=== PATIENT | male | born 1985 | race Caucasian/White ===

== ENCOUNTER 2016-08-23 10:11 | Emergency (ER) | payer MEDICARE, OTHER ==
[2016-08-23] MEDS ORDERED: ONDANSETRON 4 MG TAB.RAPDIS PO ONE (10:27)
--- NOTE | 2016-08-23 10:27 | ER Document Report ---
ED Medical Screen (RME) - General Stated Complaint: DIARRHEA Time seen by provider: 10:24 Mode of Arrival: Ambulatory Information source: Patient Notes: 31-year-old male presents to ED for diarrhea explosive with a bloated feeling with nausea no vomiting denies fever. With lower left abdominal pain. States he ate a lot of fried vegetables yesterday. I have greeted and performed a rapid initial assessment of this patient. A comprehensive ED assessment and evaluation of the patient, analysis of test results and completion of medical decision making process will be conducted by an additional ED providers. TRAVEL OUTSIDE OF THE [place] IN LAST 30 DAYS: No - Related Data Allergies/Adverse Reactions: No Known Allergies Allergy (Verified 10/05/15 10:33) Past Medical History - Past Medical History Cardiac Medical History: Reports: Hx Hypercholesterolemia GI Medical History: Reports: Hx Diverticulitis Psychiatric Medical History: Reports: Hx Depression Past Surgical History: Reports: Hx Orthopedic Surgery - left knee, right ankle
[2016-08-23 11:06] LABS: ABSOLUTE EOSINOPHILS # (AUTO) 0.1 10^3/uL (0.0-0.6); ABSOLUTE LYMPHOCYTES (AUTO) 0.7 10^3/uL (0.5-4.7); ABSOLUTE MONOCYTES (AUTO) 0.7 10^3/uL (0.1-1.4); ABSOLUTE NEUT (AUTO) 11.8 10^3/uL (1.7-8.2); BASOPHILS % (AUTO) 0.3 % (0-2); EOSINOPHILS % (AUTO) 0.8 % (0-6); HEMATOCRIT 53.9 % (37.9-51.0); HGB HCT DIFFERENCE 0.1; LYMPHOCYTES % (AUTO) 5.4 % (13-45); MEAN CORPUSCULAR HEMOGLOBIN 30.7 pg (27.0-33.4); MEAN CORPUSCULAR HGB CONC 33.4 g/dL (32.0-36.0); MEAN CORPUSCULAR VOLUME 92 fl (80-97); MONOCYTES % (AUTO) 5.2 % (3-13); RED BLOOD COUNT 5.85 10^6/uL (4.35-5.55); RED CELL DISTRIBUTION WIDTH 12.8 % (11.5-14.0); SEGMENTED NEUTROPHILS % (AUTO) 88.3 % (42-78); WHITE BLOOD COUNT 13.3 10^3/uL (4.0-10.5)
--- NOTE | 2016-08-23 11:08 | ER Document Report ---
ED GI/ - General Mode of Arrival: Ambulatory Information source: Patient TRAVEL OUTSIDE OF THE [place] IN LAST 30 DAYS: No - HPI Patient complains to provider of: Diarrhea Onset: This morning - 399 Timing/Duration: Sudden, Persistent Location: [facility] <ADI MEDINA - Last Filed: 08/23/16 11:29> <SAM HUTTON - Last Filed: 08/23/16 17:22> <FORTINO GAINES - Last Filed: 08/23/16 20:41> - General Chief Complaint: Nausea/Vomiting/Diarrhea Stated Complaint: DIARRHEA Notes: Patient is a 31-year-old male presenting to the emergency department chief complaint diarrhea onset 0 today. Patient states that he has been bloated and unable to drink many fluids. Patient also states he has left lower quadrant abdominal pain. Patient's kids were sick a couple weeks ago, but patient states they did not have any similar symptoms. Patient took Zofran and Lomotil at home that he had left over from a similar illness approximately one year ago. (ADI MEDINA) The patient reports his symptoms today are very similar to what he had when he was seen here in October 2015. At that time his stool was heme positive, there is no sign of bacterial infection, there were no WBCs in the stool, and he was treated symptomatically. Today, other than being hemoconcentrated compared to last year, his labs are appearing the same with heme positive stool again. I am waiting on the results of the Gram stain and C. difficile tests. (SAM HUTTON) - Related Data Allergies/Adverse Reactions: No Known Allergies Allergy (Verified 08/23/16 10:27) Past Medical History - General Information source: Patient - Social History Smoking Status: Current Every Day Smoker Chew tobacco use (# tins/day): No Frequency of alcohol use: None Drug Abuse: None Family History: Reviewed & Not Pertinent Patient has suicidal ideation: No Patient has homicidal ideation: No - Past Medical History Cardiac Medical History: Reports: Hx Hypercholesterolemia, Hx Hypertension GI Medical History: Reports: Hx Diverticulitis Psychiatric Medical History: Reports: Hx Depression Past Surgical History: Reports: Hx Orthopedic Surgery - left knee, right ankle <ADI MEDINA - Last Filed: 08/23/16 11:29> Review of Systems - Review of Systems Constitutional: No symptoms reported EENT: No symptoms reported Cardiovascular: No symptoms reported Respiratory: No symptoms reported Gastrointestinal: See HPI, Abdominal pain, Diarrhea, Poor fluid intake. denies : Vomiting Genitourinary: No symptoms reported Male Genitourinary: No symptoms reported Musculoskeletal: No symptoms reported Skin: No symptoms reported Hematologic/Lymphatic: No symptoms reported Neurological/Psychological: No symptoms reported -: Yes All other systems reviewed and negative <ADI MEDINA - Last Filed: 08/23/16 11:29> Physical Exam - General General appearance: Appears well, Alert - HEENT Head: Normocephalic, Atraumatic Eyes: Normal Pupils: PERRL Mucous membranes: Dry - Respiratory Respiratory status: No respiratory distress Chest status: Nontender Breath sounds: Normal - Cardiovascular Rhythm: Regular Heart sounds: Normal auscultation Murmur: No - Abdominal Inspection: Obese Distension: No distension Bowel sounds: Normal Tenderness: Tender - LLQ and RLQ tender to palpation - Back Back: Normal, Nontender - Extremities General upper extremity: Normal inspection General lower extremity: Normal inspection - Neurological Neuro grossly intact: Yes Cognition: Normal [place] Coma Scale Eye Opening: Spontaneous [place] Coma Scale Verbal: Oriented [place] Coma Scale Motor: Obeys Commands [place] Coma Scale Total: 15 Speech: Normal - Psychological Associated symptoms: Normal affect, Normal mood - Skin Skin Temperature: Warm Skin Moisture: Dry Skin Color: Normal <ADI MEDINA - Last Filed: 08/23/16 11:29> <SAM HUTTON - Last Filed: 08/23/16 17:22> <FORTINO GAINES - Last Filed: 08/23/16 20:41> - Vital signs Vitals: Temp Pulse Resp BP Pulse Ox 98.1 F 94 20 134/79 H 96 08/23/16 10:22 08/23/16 10:22 08/23/16 10:22 08/23/16 10:22 08/23/16 10:22 (ADI MEDINA) (SAM HUTTON) (FORTINO GAINES) Course - Laboratory Result Diagrams: 08/23/16 10:40 08/23/16 10:40 <ADI MEDINA - Last Filed: 08/23/16 11:29> - Laboratory Result Diagrams: 08/23/16 10:40 08/23/16 10:40 - Transfer of Care Care transferred to following provider: Dr. Gaines <SAM HUTTON - Last Filed: 08/23/16 17:22> - Laboratory Result Diagrams: 08/23/16 10:40 08/23/16 10:40 <FORTINO GAINES - Last Filed: 08/23/16 20:41> - Re-evaluation Re-evalutation: 08/23/16 14:30 Patient is currently sound asleep. He received 2 L of IV fluids, he has not had any diarrhea so far. 08/23/16 17:19 Labs were ordered on this patient from the intake area. I mistakenly assumed that the stool was ordered included the usual labs. I found out now that only Hemoccult was ordered, tests for C. difficile and WBCs was not ordered. They will be added at this time. (SAM HUTTON) 08/23/16 20:37 C. difficile and wbcs were negative patient will be discharged home (FORTINO GAINES) - Vital Signs Vital signs: Temp Pulse Resp BP Pulse Ox 98.1 F 94 20 134/79 H 96 08/23/16 10:22 08/23/16 10:22 08/23/16 10:22 08/23/16 10:22 08/23/16 10:22 (ADI MEDINA) (SAM HUTTON) (FORTINO GAINES) - Laboratory Laboratory results interpreted by me: 08/23/16 08/23/16 10:40 10:40 WBC 13.3 H RBC 5.85 H Hgb 18.0 H Hct 53.9 H Seg Neutrophils % 88.3 H Lymphocytes % 5.4 L Absolute Neutrophils 11.8 H Calcium 10.5 H Total Bilirubin 2.3 H Total Protein 8.5 H Albumin 5.5 H (SAM HUTTON) (FORTINO GAINES) - Transfer of Care Notes: 08/23/16 17:25 The patient is waiting on the C. diff, and stool for WBC's prior to discharge. The discharge instructions were written assuming the C. difficile and stool for WBCs are negative. If either turns out be positive, then the discharge instructions will be changed and appropriate antibiotics prescribed by Dr. Gaines. (SAM HUTTON) Discharge <ADI MEDINA - Last Filed: 08/23/16 11:29> <SAM HUTTON - Last Filed: 08/23/16 17:22> <BAMBIFORTINO - Last Filed: 08/23/16 20:41> - Discharge Clinical Impression: Diarrhea Qualifiers: Diarrhea type: unspecified type Qualified Code(s): R19.7 - Diarrhea, unspecified Condition: Stable Additional Instructions: Gastroenteritis: You most likely have gastroenteritis. This is an irritation of the stomach and intestinal tract. It's usually caused by a virus, but can also be caused by bacteria, toxins that cause food poisoning, or excessive alcohol intake. Symptoms may include fever, painful abdominal cramps, nausea, vomiting , and diarrhea. Start with small amounts (two to six ounces) of clear liquids (soft drinks , herb teas, broth, etc). Try to take fluids frequently even if you are vomiting, to prevent dehydration. When liquids are being consumed successfully , advance to small amounts of bland food (mashed potato, toast) for 6 - 12 hours. Gastroenteritis rarely requires medication. It goes away by itself. Use good handwashing so you don't spread germs. Wash underwear in very hot water. If symptoms are severe, talk to the doctor. Call your physician if blood appears in your vomitus or stool, if vomiting lasts longer than 24 hours, if the abdominal pain worsens or becomes localized to one area, or if you develop high fever. Prescriptions: Ondansetron [Zofran Odt 4 mg Tablet] 1 - 2 tab PO Q4H PRN #30 tab.rapdis PRN Reason: For Nausea/Vomiting Referrals: KENNY AQUINO PA-C [Primary Care Provider] - Follow up as needed Scribe Attestation: 08/23/16 17:24 I personally performed the services described in the documentation, reviewed and edited the documentation which was dictated to the scribe in my presence, and it accurately records my words and actions. (SAM HUTTON) Scribe Documentation - Scribe Written by Scribe:: Adi Medina 08/23/2016 1108 acting as scribe for :: Marian <ADI MEDINA - Last Filed: 08/23/16 11:29>
[2016-08-23 11:32] LABS: ALANINE AMINOTRANSFERASE 48 U/L (21-72); ALBUMIN 5.5 g/dL (3.5-5.0); ALKALINE PHOSPHATASE 82 U/L (38-126); ANION GAP 17 (5-19); ASPARTATE AMINO TRANSFERASE 36 U/L (17-59); BILIRUBIN,TOTAL 2.3 mg/dL (0.2-1.3); BLOOD UREA NITROGEN 17 mg/dL (7-20); CALCIUM 10.5 mg/dL (8.4-10.2); CARBON DIOXIDE 25 mmol/L (22-30); CHLORIDE 102 mmol/L (98-107); CREATININE RESULT 1.16 mg/dL (0.52-1.25); GLUCOSE 103 mg/dL (75-110); LIPASE 81.1 U/L (23-300); POTASSIUM 4.7 mmol/L (3.6-5.0); SODIUM 143.6 mmol/L (137-145); TOTAL PROTEIN 8.5 g/dL (6.3-8.2)
[2016-08-23] MEDS ORDERED: NORMAL SALINE 1000 ML 1,000 ML IV PRN (11:33)
[2016-08-23 14:04] LABS: APPEARANCE,URINE CLEAR; BILIRUBIN,URINE NEGATIVE (NEGATIVE); GLUCOSE, URINE NEGATIVE (NEGATIVE); KETONES,URINE NEGATIVE (NEGATIVE); LEUKOCYTE ESTERASE,URINE NEGATIVE (NEGATIVE); NITRITE,URINE NEGATIVE (NEGATIVE); PROTEIN,URINE NEGATIVE (NEGATIVE); URINE SPECIFIC GRAVITY 1.024; UROBILINOGEN,URINE NEGATIVE mg/dL (<2.0)
[2016-08-23] MEDS ORDERED: DEXTROSE 5%-NORMAL SALINE 1,000 ML IV ONE (14:30)
[2016-08-23] MEDS ORDERED: ONDANSETRON ODT 4 MG TAB (6 TAB/DSPK) PO PRN (20:23)
[2016-08-23 21:07] VITALS: BP 126/77
== END 2016-08-23 20:46 | disposition home or self-care (01) ==
LOC: ER 10:11
DX: R19.7 Diarrhea, unspecified (principal); R10.32 Left lower quadrant pain; R10.814 Left lower quadrant abdominal tenderness; R10.813 Right lower quadrant abdominal tenderness; R19.5 Other fecal abnormalities; I10 Essential (primary) hypertension; F17.200 Nicotine dependence, unspecified, uncomplicated; Z87.19 Personal history of other diseases of the digestive system
CPT/HCPCS: 99283; 96360; 96361; 36415; 89055; 83690; 85025; 82272; 80053; 81001; 87493 ×2; A9270 ×2; J7030; S0119

== ENCOUNTER 2017-09-07 02:37 | Emergency (ER) | payer MEDICARE, OTHER ==
[2017-09-07] MEDS ORDERED: LORAZEPAM 1 MG TABLET PO ONE (03:39)
[2017-09-07] MEDS ORDERED: NORMAL SALINE 1000 ML 1,000 ML IV ONE (03:39)
--- NOTE | 2017-09-07 03:41 | ER Document Report ---
ED General - General Chief Complaint: Nausea Stated Complaint: DIARRHEA Time Seen by Provider: 09/07/17 03:32 Notes: Patient is a pleasant 32-year-old male who presents with complaint of feeling weak and achy having diarrhea. He says that he ran out of his lorazepam 2 days ago. Then he started having the diarrhea has continued. He is due for an appointment tomorrow with his doctor for a refill. Denies any fevers. Some nausea but no vomiting. No blood in his stool. He does have history of diverticulitis several years ago. He says this feels different than his diverticulitis and that he has no associated abdominal pain. He says he has had similar symptoms when he is ran out of his lorazepam in the past. No other complaints at this time. TRAVEL OUTSIDE OF THE [place] IN LAST 30 DAYS: No - Related Data Allergies/Adverse Reactions: No Known Allergies Allergy (Verified 08/23/16 10:27) Past Medical History - Social History Smoking Status: Current Every Day Smoker Frequency of alcohol use: None Drug Abuse: None Family History: Reviewed & Not Pertinent Patient has suicidal ideation: No Patient has homicidal ideation: No - Past Medical History Cardiac Medical History: Reports: Hx Hypercholesterolemia, Hx Hypertension Renal/ Medical History: Denies: Hx Peritoneal Dialysis GI Medical History: Reports: Hx Diverticulitis Psychiatric Medical History: Reports: Hx Depression Past Surgical History: Reports: Hx Orthopedic Surgery - left knee, right ankle - Immunizations Hx Diphtheria, Pertussis, Tetanus Vaccination: No Review of Systems - Review of Systems Notes: My Normal Review Basic REVIEW OF SYSTEMS: CONSTITUTIONAL : Denies fever, chills, or sweats. Denies recent illness. EENT: Denies eye, ear, throat, or mouth pain or symptoms. Denies nasal or sinus congestion. CARDIOVASCULAR: Denies chest pain. RESPIRATORY: Denies cough, cold, or chest congestion. Denies shortness of breath, difficulty breathing, or wheezing. GASTROINTESTINAL: Denies abdominal pain. Nausea and diarrhea. No blood in stool. GENITOURINARY: Denies difficulty urinating, painful urination, burning, frequency, or blood in urine. MUSCULOSKELETAL: Denies neck or back pain or joint pain or swelling. SKIN: Denies rash or skin lesions. NEUROLOGICAL: Denies altered mental status or loss of consciousness. Denies headache. Denies weakness or paralysis or loss of use of either side. Denies problems with gait or speech. Denies sensory or motor loss. ALL OTHER SYSTEMS REVIEWED AND NEGATIVE. Physical Exam - Vital signs Vitals: Temp Pulse Resp BP Pulse Ox 98.1 F 71 20 132/92 H 96 09/07/17 03:18 09/07/17 03:18 09/07/17 03:18 09/07/17 03:18 09/07/17 03:18 - Notes Notes: General Appearance: Well nourished, alert, cooperative, no acute distress, no obvious discomfort. Well-appearing. Vitals: reviewed, See vital signs table. Head: no swelling or tenderness to the head Eyes: PERRL, EOMI, Conjuctiva clear Mouth: No decreasd moisture Lungs: No wheezing, No rales, No rhonci, No accessory muscle use, good air exchange bilaterally. Heart: Normal rate, Regular rythm, No murmur Abdomen: Normal BS, soft, No rigidity, No abdominal tenderness, No guarding, no rebound Extremities: strength 5/5 in all extremities, good pulses in all extremities, no swelling or tenderness in the extremities, no edema. Skin: warm, dry, appropriate color, no rash Neuro: speech clear, oriented x 3, normal affect, responds appropriately to questions. Course - Re-evaluation Re-evalutation: 09/07/17 04:57 Patient continues to look well and feels improved. His laboratory evaluation is unremarkable. I do not suspect diverticulitis and that he is [place] no pain in his abdomen and no pain to palpation. Suspect his symptoms could be dilated to benzodiazepine withdrawal being that this started oxygen 24 hours after his last dose of Ativan. I will write a prescription for a few pills of Ativan. He has appointment with his doctor tomorrow for follow-up and reevaluation for further prescribing of his medication. Patient encouraged to return to ER immediately if he has abdominal pain, fevers, blood in stool, or feels unwell. Patient agrees with plan will be discharged home. Dictation of this chart was performed using voice recognition software; therefore, there may be some unintended grammatical errors. - Vital Signs Vital signs: Temp Pulse Resp BP Pulse Ox 98.1 F 71 20 132/92 H 96 09/07/17 03:18 09/07/17 03:18 09/07/17 03:18 09/07/17 03:18 09/07/17 03:18 - Laboratory Result Diagrams: 09/07/17 03:29 09/07/17 03:29 Laboratory results interpreted by me: 09/07/17 03:29 Chloride 108 H Calcium 10.5 H ALT 76 H Discharge - Discharge Clinical Impression: Benzodiazepine dependence Diarrhea Qualifiers: Diarrhea type: unspecified type Qualified Code(s): R19.7 - Diarrhea, unspecified Condition: Good Disposition: HOME, SELF-CARE Additional Instructions: You blood work today did not show any concerning abnormalities. i suspect your diarrhea could be related to withdrawl from not having your Ativan. I have written a short prescription for your Ativan to get you thru until you see your doctor tomorrow. Please return ot the ER if oyu have abdominal pain,fevers, vomiting, bloody stools, or feel unwell. Prescriptions: Lorazepam [Ativan 1 mg Tablet] 1 mg PO BID #6 tab
[2017-09-07 03:43] LABS: ABSOLUTE BASOPHILS # (AUTO) 0.1 10^3/uL (0.0-0.2); ABSOLUTE EOSINOPHILS # (AUTO) 0.4 10^3/uL (0.0-0.6); ABSOLUTE LYMPHOCYTES (AUTO) 1.9 10^3/uL (0.5-4.7); ABSOLUTE MONOCYTES (AUTO) 0.4 10^3/uL (0.1-1.4); ABSOLUTE NEUT (AUTO) 6.3 10^3/uL (1.7-8.2); EOSINOPHILS % (AUTO) 3.9 % (0-6); HEMATOCRIT 48.2 % (37.9-51.0); HEMOGLOBIN 16.8 g/dL (13.5-17.0); LYMPHOCYTES % (AUTO) 20.7 % (13-45); MEAN CORPUSCULAR HEMOGLOBIN 31.1 pg (27.0-33.4); MEAN CORPUSCULAR HGB CONC 34.8 g/dL (32.0-36.0); MEAN CORPUSCULAR VOLUME 89 fl (80-97); PLATELET COUNT 287 10^3/uL (150-450); RED CELL DISTRIBUTION WIDTH 12.8 % (11.5-14.0); SEGMENTED NEUTROPHILS % (AUTO) 69.4 % (42-78); TOTAL CELLS COUNTED % (AUTO) 100 %
[2017-09-07 03:58] LABS: ALANINE AMINOTRANSFERASE 76 U/L (21-72); ALBUMIN 4.7 g/dL (3.5-5.0); ALKALINE PHOSPHATASE 72 U/L (38-126); ANION GAP 10 (5-19); ASPARTATE AMINO TRANSFERASE 38 U/L (17-59); BILIRUBIN,DIRECT 0.4 mg/dL (0.0-0.4); BILIRUBIN,TOTAL 0.9 mg/dL (0.2-1.3); BLOOD UREA NITROGEN 9 mg/dL (7-20); CALCIUM 10.5 mg/dL (8.4-10.2); CARBON DIOXIDE 23 mmol/L (22-30); CHLORIDE 108 mmol/L (98-107); GLUCOSE 107 mg/dL (75-110); LIPASE 101.7 U/L (23-300); POTASSIUM 4.2 mmol/L (3.6-5.0); SODIUM 140.6 mmol/L (137-145); TOTAL PROTEIN 7.6 g/dL (6.3-8.2)
[2017-09-07 05:22] VITALS: BP 108/63
== END 2017-09-07 05:33 | disposition home or self-care (01) ==
LOC: ER 02:37
DX: F13.20 Sedative, hypnotic or anxiolytic dependence, uncomplicated (principal); R19.7 Diarrhea, unspecified; R11.0 Nausea; F17.200 Nicotine dependence, unspecified, uncomplicated; E78.00 Pure hypercholesterolemia, unspecified; I10 Essential (primary) hypertension
CPT/HCPCS: 99284; 96360; 36415; 83690; 85025; 80053; A9270; J7030

== ENCOUNTER 2017-09-26 07:30 | Emergency (ER) | payer MEDICARE, OTHER ==
--- NOTE | 2017-09-26 08:34 | ER Document Report ---
ED General - General Chief Complaint: Nausea/Vomiting/Diarrhea Stated Complaint: LEFT FLANK PAIN Time Seen by Provider: 09/26/17 08:01 Notes: 32-year-old male to the emergency department chief complaint of left upper quadrant abdominal pain and left-sided chest and flank pain. States that he was scheduled for colonoscopy today. Was feeling so bad he could not even make it out of bed. Had a call an ambulance. States that he has been worked up by a doctor as an outpatient. Had some constipation which he described as a "obstruction". After getting cleaned out then he has diarrhea now. Reports that he had mono in the last couple of years and that thinks maybe it is mono again. Intermittent fevers, intermittent chills and sweats. Has any blood in the urine. Denies any testicular pain. Nothing seems to make it better. Movement and coughing seems to make it worse. Pain seems to radiate up into the left chest. Feels wiped out. he currently on disability for severe PTSD from his time in the [employer] TRAVEL OUTSIDE OF THE [place] IN LAST 30 DAYS: No - HPI Onset: Last week Onset/Duration: Gradual, Worse Quality of pain: Achy, Cramping Severity: Moderate Pain Level: 3 Associated symptoms: Chills, Diarrhea, Fever, Nausea Relieved by: Denies - Related Data Allergies/Adverse Reactions: milk Allergy (Unknown, Verified 09/26/17 07:33) shrimp Allergy (Unknown, Verified 09/26/17 07:33) wheat Allergy (Unknown, Verified 09/26/17 07:33) Past Medical History - General Information source: Patient - Social History Smoking Status: Current Every Day Smoker Cigarette use (# per day): Yes Smoking Education Provided: Yes Frequency of alcohol use: None Drug Abuse: None Lives with: Spouse/Significant other Family History: Reviewed & Not Pertinent - Past Medical History Cardiac Medical History: Reports: Hx Hypercholesterolemia, Hx Hypertension Renal/ Medical History: Denies: Hx Peritoneal Dialysis GI Medical History: Reports: Hx Diverticulitis Psychiatric Medical History: Reports: Hx Depression Past Surgical History: Reports: Hx Orthopedic Surgery - left knee, right ankle - Immunizations Hx Diphtheria, Pertussis, Tetanus Vaccination: No Review of Systems - Review of Systems Constitutional: Fever, Malaise, Weakness EENT: denies: Blurred vision, Tearing, Double vision, Ear pain, Nose congestion , Nose discharge, Throat swelling, Mouth pain Cardiovascular: Chest pain. denies: Palpitations, Heart racing, Orthopnea, Dyspnea, Lightheaded, Edema, Paroxysmal Nocturnal Dysp Respiratory: Hurts to breathe. denies: Cough, Short of breath, Wheezing Gastrointestinal: Abdominal pain, Diarrhea, Nausea Genitourinary: Flank pain. denies: Burning, Dysuria, Discharge, Pain Musculoskeletal: Back pain. denies: Gout, Joint pain, Joint swelling, Muscle pain Skin: denies: Dryness, Lesions, Lumps, Rash Hematologic/Lymphatic: denies: Anemia, Blood clots, Easy bleeding, Easy bruising Neurological/Psychological: Depression. denies: Dementia, Lost consciousness, Headaches Physical Exam - Vital signs Vitals: Temp Pulse Resp BP Pulse Ox 97.9 F 64 19 143/94 H 99 09/26/17 07:49 09/26/17 07:49 09/26/17 07:49 09/26/17 07:49 09/26/17 07:49 Interpretation: Normal - General General appearance: Appears well, Alert - HEENT Head: Normocephalic, Atraumatic Eyes: Normal Pupils: PERRL Neck: Normal. No: Anterior cervical chain, Posterior cervical chain, Brudzinski - Respiratory Respiratory status: No respiratory distress Chest status: Nontender Breath sounds: Normal Chest palpation: Normal - Cardiovascular Rhythm: Regular Heart sounds: Normal auscultation Murmur: No - Abdominal Inspection: Normal Distension: No distension Bowel sounds: Normal Tenderness: Tender, Other - Left upper quadrant and left flank tenderness Organomegaly: No organomegaly - Back Back: Normal, Tender, Other - Flank on the left tender to percussion - Extremities General upper extremity: Normal inspection, Nontender, Normal color, Normal ROM , Normal temperature General lower extremity: Normal inspection, Nontender, Normal color, Normal ROM , Normal temperature, Normal weight bearing. No: Jared's sign - Neurological Neuro grossly intact: Yes Cognition: Normal Orientation: AAOx4 [place] Coma Scale Eye Opening: Spontaneous [place] Coma Scale Verbal: Oriented [place] Coma Scale Motor: Obeys Commands [place] Coma Scale Total: 15 Speech: Normal Motor strength normal: LUE, RUE, LLE, RLE Sensory: Normal - Psychological Associated symptoms: Normal affect, Normal mood - Skin Skin Temperature: Warm Skin Moisture: Dry Skin Color: Normal Course - Re-evaluation Re-evalutation: 09/26/17 12:54 Patient feeling a little better. Uncertain etiology of patient's symptoms. CT scan unremarkable. Slightly elevated WBC count. Had a very long discussion with regards to leaky gut and repairing of GI dysfunction. Gave recommendations with regards to food sensitivities and an elimination diet with inclusion of probiotics. Did recommend VS L #3. I have also recommended that he follow-up with GI. Of note, patient has a colonoscopy scheduled for Friday. Will recommend as well that he gets an upper endoscopy as his pain in the left upper quadrant could actually be gastric in relation 09/26/17 12:56 Laboratory 09/26/17 09/26/17 09/26/17 08:33 08:33 08:33 WBC 11.5 H RBC 5.65 H Hgb 17.6 H Hct 50.0 MCV 88 MCH 31.2 MCHC 35.3 RDW 12.7 Plt Count 295 Seg Neutrophils % 73.3 Lymphocytes % 17.9 Monocytes % 5.6 Eosinophils % 2.7 Basophils % 0.5 Absolute Neutrophils 8.4 H Absolute Lymphocytes 2.1 Absolute Monocytes 0.6 Absolute Eosinophils 0.3 Absolute Basophils 0.1 Sodium 140.5 Potassium 4.1 Chloride 107 Carbon Dioxide 22 Anion Gap 12 BUN 9 Creatinine 0.96 Est GFR ( Amer) > 60 Est GFR (Non-Af Amer) > 60 Glucose 91 Calcium 9.6 Total Bilirubin 1.5 H Direct Bilirubin 0.4 Neonat Total Bilirubin Not Reportable Neonat Direct Bilirubin Not Reportable Neonat Indirect Bili Not Reportable AST 52 ALT 49 Alkaline Phosphatase 68 Total Protein 8.0 Albumin 4.7 Lipase 92.9 Urine Color Urine Appearance Urine pH Ur Specific [place] Urine Protein Urine Glucose (UA) Urine Ketones Urine Blood Urine Nitrite Urine Bilirubin Urine Urobilinogen Ur Leukocyte Esterase Urine WBC (Auto) Urine Ascorbic Acid Monotest NEGATIVE 09/26/17 11:23 WBC RBC Hgb Hct MCV MCH MCHC RDW Plt Count Seg Neutrophils % Lymphocytes % Monocytes % Eosinophils % Basophils % Absolute Neutrophils Absolute Lymphocytes Absolute Monocytes Absolute Eosinophils Absolute Basophils Sodium Potassium Chloride Carbon Dioxide Anion Gap BUN Creatinine Est GFR ( Amer) Est GFR (Non-Af Amer) Glucose Calcium Total Bilirubin Direct Bilirubin Neonat Total Bilirubin Neonat Direct Bilirubin Neonat Indirect Bili AST ALT Alkaline Phosphatase Total Protein Albumin Lipase Urine Color STRAW Urine Appearance CLEAR Urine pH 8.0 Ur Specific [place] 1.004 Urine Protein NEGATIVE Urine Glucose (UA) NEGATIVE Urine Ketones NEGATIVE Urine Blood NEGATIVE Urine Nitrite NEGATIVE Urine Bilirubin NEGATIVE Urine Urobilinogen NEGATIVE Ur Leukocyte Esterase NEGATIVE Urine WBC (Auto) 0 Urine Ascorbic Acid NEGATIVE Monotest Abdomen/Pelvis CT 09/26/17 00:00 IMPRESSION: NO SIGNIFICANT OR ACUTE FINDING IN THE ABDOMEN OR PELVIS ON CT SCAN WITH IV CONTRAST. Chest X-Ray 09/26/17 08:34 IMPRESSION: NO SIGNIFICANT RADIOGRAPHIC FINDING IN THE CHEST. - Vital Signs Vital signs: Temp Pulse Resp BP Pulse Ox 97.9 F 64 19 143/94 H 99 09/26/17 07:49 09/26/17 07:49 09/26/17 07:49 09/26/17 07:49 09/26/17 07:49 - Laboratory Result Diagrams: 09/26/17 08:33 09/26/17 08:33 Laboratory results interpreted by me: 09/26/17 09/26/17 08:33 08:33 WBC 11.5 H RBC 5.65 H Hgb 17.6 H Absolute Neutrophils 8.4 H Total Bilirubin 1.5 H Discharge - Discharge Clinical Impression: Left upper quadrant abdominal pain of unknown etiology Condition: Good Disposition: HOME, SELF-CARE Instructions: Abdominal Pain ([facility]), Prescribed Antidiarrhea Medications ([facility]), Antispasmodics ([facility]), Diarrhea, Nonspecific ([facility]) Additional Instructions: It would be very important that you follow-up with your regular doctor within the next 24 hours if symptoms get worse or not improving. You have a colonoscopy scheduled for Friday. I have admitted advising if possible to have upper endoscopy performed as well. Please call your reducing salon attendant today to see if that would be possible. It may require repeat visit. Please follow the elimination diet which I spoke with you about. Avoid wheat, dairy, soy products, eggs as well as peanuts. Please try the probiotics as recommended. You may try the prescription medications as given. Prescriptions: Dicyclomine HCl [Bentyl 10 mg Capsule] 1 cap PO TID PRN #30 cap PRN Reason: Diarrhea Hydrocodone/Acetaminophen [Dale 5-325 mg Tablet] 1 tab PO TID PRN 3 Days #9 tablet PRN Reason: Pain Scale Of 3 Ondansetron [Zofran Odt 4 mg Tablet] 1 - 2 tab PO Q4H PRN #15 tab.rapdis PRN Reason: For Nausea/Vomiting Forms: Follow-Up Outpatient Testing Referrals: KENNY AQUINO PA-C [Primary Care Provider] - Follow up as needed DOMENICA LINO MD [ACTIVE STAFF] - Follow up in 3-5 days
[2017-09-26] MEDS ORDERED: FENTANYL CITRATE INJ/PF 100 MCG/2 ML AMPUL IV ONE (08:35)
[2017-09-26 08:51] LABS: ABSOLUTE BASOPHILS # (AUTO) 0.1 10^3/uL (0.0-0.2); ABSOLUTE EOSINOPHILS # (AUTO) 0.3 10^3/uL (0.0-0.6); ABSOLUTE LYMPHOCYTES (AUTO) 2.1 10^3/uL (0.5-4.7); ABSOLUTE MONOCYTES (AUTO) 0.6 10^3/uL (0.1-1.4); ABSOLUTE NEUT (AUTO) 8.4 10^3/uL (1.7-8.2); BASOPHILS % (AUTO) 0.5 % (0-2); EOSINOPHILS % (AUTO) 2.7 % (0-6); HEMOGLOBIN 17.6 g/dL (13.5-17.0); LYMPHOCYTES % (AUTO) 17.9 % (13-45); MEAN CORPUSCULAR HEMOGLOBIN 31.2 pg (27.0-33.4); MEAN CORPUSCULAR HGB CONC 35.3 g/dL (32.0-36.0); MEAN CORPUSCULAR VOLUME 88 fl (80-97); MONOCYTES % (AUTO) 5.6 % (3-13); PLATELET COUNT 295 10^3/uL (150-450); RED BLOOD COUNT 5.65 10^6/uL (4.35-5.55); RED CELL DISTRIBUTION WIDTH 12.7 % (11.5-14.0); SEGMENTED NEUTROPHILS % (AUTO) 73.3 % (42-78); TOTAL CELLS COUNTED % (AUTO) 100 %; WHITE BLOOD COUNT 11.5 10^3/uL (4.0-10.5)
[2017-09-26] MEDS ORDERED: ONDANSETRON HCL INJ/PF 4 MG/2 ML SDV IV ONE (09:03)
[2017-09-26 09:11] LABS: ALANINE AMINOTRANSFERASE 49 U/L (21-72); ALBUMIN 4.7 g/dL (3.5-5.0); ALKALINE PHOSPHATASE 68 U/L (38-126); ANION GAP 12 (5-19); ASPARTATE AMINO TRANSFERASE 52 U/L (17-59); BILIRUBIN,DIRECT 0.4 mg/dL (0.0-0.4); BILIRUBIN,TOTAL 1.5 mg/dL (0.2-1.3); BLOOD UREA NITROGEN 9 mg/dL (7-20); CALCIUM 9.6 mg/dL (8.4-10.2); CARBON DIOXIDE 22 mmol/L (22-30); CHLORIDE 107 mmol/L (98-107); GLUCOSE 91 mg/dL (75-110); LIPASE 92.9 U/L (23-300); POTASSIUM 4.1 mmol/L (3.6-5.0); SODIUM 140.5 mmol/L (137-145)
[2017-09-26] MEDS ORDERED: KETOROLAC TROMETHAMINE INJ/PF 30 MG/1 ML SDV IV ONE (10:18)
[2017-09-26] MEDS ORDERED: DIPHENHYDRAMINE HCL 50 MG/ML VIAL IV ONE (11:01)
[2017-09-26 11:49] LABS: APPEARANCE,URINE CLEAR; BILIRUBIN,URINE NEGATIVE (NEGATIVE); COLOR,URINE STRAW; GLUCOSE, URINE NEGATIVE (NEGATIVE); KETONES,URINE NEGATIVE (NEGATIVE); LEUKOCYTE ESTERASE,URINE NEGATIVE (NEGATIVE); NITRITE,URINE NEGATIVE (NEGATIVE); PROTEIN,URINE NEGATIVE (NEGATIVE); URINE SPECIFIC GRAVITY 1.004; UROBILINOGEN,URINE NEGATIVE mg/dL (<2.0)
--- NOTE | 2017-09-26 11:49 | RADIOLOGY REPORT (SQ) ---
EXAM DESCRIPTION: CHEST PA/LAT COMPLETED DATE/TIME: 09/26/2017 11:42 am REASON FOR STUDY: abd pain, left chest pain COMPARISON: None. EXAM PARAMETERS: NUMBER OF VIEWS: two views TECHNIQUE: Digital Frontal and Lateral radiographic views of the chest acquired. RADIATION DOSE: NA LIMITATIONS: none FINDINGS: LUNGS AND PLEURA: No opacities, masses or pneumothorax. No pleural effusion. MEDIASTINUM AND HILAR STRUCTURES: No masses or contour abnormalities. HEART AND VASCULAR STRUCTURES: Heart normal size. No evidence for failure. BONES: No acute findings. HARDWARE: None in the chest. OTHER: No other significant finding. IMPRESSION: NO SIGNIFICANT RADIOGRAPHIC FINDING IN THE CHEST. TECHNICAL DOCUMENTATION: JOB ID: [id number] 1908 [employer]- All Rights Reserved
--- NOTE | 2017-09-26 12:08 | RADIOLOGY REPORT (SQ) ---
EXAM DESCRIPTION: CT ABD/PELVIS WITH IV ORAL COMPLETED DATE/TIME: 09/26/2017 11:56 am REASON FOR STUDY: abd pain COMPARISON: CT abdomen pelvis 10/05/2015 TECHNIQUE: CT scan of the abdomen and pelvis performed using helical scanning technique with dynamic intravenous contrast injection. Patient drank oral contrast. Images reviewed with lung, soft tissue , and bone windows. Reconstructed coronal and sagittal MPR images reviewed. Delayed images for evalua tion of the urinary system also acquired. All images stored on PACS. All CT scanners at this facility use dose modulation, iterative reconstruction, and/or weight based d osing when appropriate to reduce radiation dose to as low as reasonably achievable (ALARA). [facility]: Dose Right [facility]: CareDose [facility]: Dose Right [facility]: Teradose 4D [facility]: [employer] CONTRAST TYPE AND DOSE: contrast/concentration: Isovue 370.00 mg/ml; Total Contrast Delivered: 100.0 ml; Total Saline Delivered: 59.4 ml RENAL FUNCTION: Creatinine 0.96 RADIATION DOSE: CT Rad equipment meets quality standard of care and radiation dose reduction techniq ues were employed. CTDIvol: 17.3 - 20.3 mGy. DLP: 2219 mGy-cm.. LIMITATIONS: None. FINDINGS: LOWER CHEST: No significant findings. No nodules or infiltrates. LIVER: Normal size. No masses. No dilated ducts. SPLEEN: Normal size. No focal lesions. PANCREAS: No masses. No significant calcifications. No adjacent inflammation or peripancreatic fluid collections. Pancreatic duct not dilated. GALLBLADDER: No identified stones by CT criteria. No inflammatory changes to suggest cholecystitis. ADRENAL GLANDS: No significant masses or asymmetry. RIGHT KIDNEY AND URETER: No solid masses. No significant calcifications. No hydronephrosis or hyd roureter. LEFT KIDNEY AND URETER: No solid masses. No significant calcifications. No hydronephrosis or hydr oureter. AORTA AND VESSELS: No aneurysm. No dissection. Renal arteries, SMA, celiac without stenosis. RETROPERITONEUM: No retroperitoneal adenopathy, hemorrhage or masses. BOWEL AND PERITONEAL CAVITY: No masses or inflammatory changes. No free fluid or peritoneal masses. APPENDIX: Normal. PELVIS: No mass. No free fluid. Normal bladder. ABDOMINAL WALL: No masses. No hernias. BONES: No significant or acute findings. OTHER: No other significant finding. IMPRESSION: NO SIGNIFICANT OR ACUTE FINDING IN THE ABDOMEN OR PELVIS ON CT SCAN WITH IV CONTRAST. TECHNICAL DOCUMENTATION: JOB ID: [id number] Quality ID # [id number]: Final reports with documentation of one or more dose reduction techniques (e.g., Au tomated exposure control, adjustment of the mA and/or kV according to patient size, use of iterative reconstruction technique) 2010 [employer]- All Rights Reserved Reading location - IP/workstation name: [email or web address] [id number]
[2017-09-26] MEDS ORDERED: ALBUTEROL SULFATE 0.083% NEB 2.5 MG/3 ML AMPUL NEB ONE (12:12)
[2017-09-26 13:21] VITALS: BP 144/95
== END 2017-09-26 13:21 | disposition home or self-care (01) ==
LOC: ER 07:30
DX: R10.12 Left upper quadrant pain (principal); R11.2 Nausea with vomiting, unspecified; R19.7 Diarrhea, unspecified; R07.9 Chest pain, unspecified; K59.00 Constipation, unspecified; R50.9 Fever, unspecified; F17.210 Nicotine dependence, cigarettes, uncomplicated
CPT/HCPCS: 99284; 96374; 96375; 86677 ×3; 36415; 83690; 85025; 86308; 80053; 81001; 71046; 74177; J1200; J3010; J1885; J2405

== ENCOUNTER 2017-09-29 10:10 | Day surgery (SDC) | payer MEDICARE, OTHER ==
[~2017-09-29 10:10] MED LIST: PROPOFOL INJ 200 MG/20 ML VIAL IV ONE
[2017-09-29] MEDS ORDERED: LIDOCAINE 1% INJ-PF (10 MG/ML) 30 ML SDV ONE (12:16)
[2017-09-29] MEDS ORDERED: PROPOFOL INJ 200 MG/20 ML VIAL IV ONE (12:42)
[2017-09-29] MEDS ORDERED: ONDANSETRON HCL INJ/PF 4 MG/2 ML SDV IV ONE (12:48)
[2017-09-29] MEDS ORDERED: ONDANSETRON HCL INJ/PF 4 MG/2 ML SDV ONE (13:01)
[2017-09-29 13:22] VITALS: BP 120/76
--- NOTE | 2017-09-29 14:23 | Operative Report ---
Operative Report DATE OF SURGERY: 09/29/17 Operative Report: The risks, benefits and alternatives of the procedure including risks of bleeding, perforation requiring surgery are explained to the patient in detail and informed consent was obtained. Patient was taken back to the endoscopy suite and placed in the left, lateral decubital position. Timeout was called. Propofol medications administered. A rectal examination is done which did not reveal any masses, tears or fissures. An Olympus videoscope was inserted into the patient's rectum. The scope was then carefully advanced all the way to the cecum. The cecum was identified by the usual anatomical landmarks including the ileocecal valve as well as the appendiceal office. Photodocumentation was obtained. The scope was then sequentially pulled back via the various segments of the colon including the ascending colon, hepatic flexure, transverse colon, splenic flexure, descending colon finding to the rectosigmoid portions of the colon. Retroflexion maneuvers performed. The risks benefits and alternatives of the procedure explained to the patient in detail and informed consent is obtained.A GIF Olympus video scope was inserted into the patient's mouth and hypopharynx ,the esophagus is identified intubated and insufflated, the scope was then advanced through the esophagus stomach and duodenum, retroflexion maneuver is done, the esophagus stomach and first and second portions of the duodenum examined PREOPERATIVE DIAGNOSIS: Dyspepsia, weight loss. Abdominal pain POSTOPERATIVE DIAGNOSIS: Colon polyp was removed via snare polypectomy. Terminal ileum biopsies, random status post biopsy to rule out for Crohn's disease. Internal hemorrhoids. Gastritis status post biopsy rule out Helicobacter pylori. Random biopsies taken in the duodenum to rule out celiac disease OPERATION: Colonoscopy with snare polypectomy. Colonoscopy with biopsy. EGD with biopsy SURGEON: DOMENICA LINO ANESTHESIA: LMAC TISSUE REMOVED OR ALTERED: As noted above. COMPLICATIONS: None. ESTIMATED BLOOD LOSS: None. INTRAOPERATIVE FINDINGS: As noted above. PROCEDURE: Patient tolerated procedure well. No immediate postprocedure complications are noted. Patient discharged in good condition. Discharge date 09/29/2017. Discharge diet: Regular. Discharge activity: Regular. 2-3 week follow-up to discuss findings. We will wait on pathology. Patient is instructed call the office or proceed to the emergency room should there be any further problems or questions. 3-5 year surveillance colonoscopy depending on the pathology of the polyp.
== END 2017-09-29 13:30 | disposition home or self-care (01) ==
LOC: END 10:10
PROVIDERS: ATTEND Internal Medicine Gastroenterology
PROC: 0DB98ZX Excision of Duodenum, Via Natural or Artificial Opening Endoscopic, Diagnostic (ICD-10-PCS; 2017-09-29)
PROC: 0DB68ZX Excision of Stomach, Via Natural or Artificial Opening Endoscopic, Diagnostic (ICD-10-PCS; 2017-09-29)
PROC: 0DBB8ZX Excision of Ileum, Via Natural or Artificial Opening Endoscopic, Diagnostic (ICD-10-PCS; principal; 2017-09-29 13:30)
PROC: 0DBN8ZX Excision of Sigmoid Colon, Via Natural or Artificial Opening Endoscopic, Diagnostic (ICD-10-PCS; 2017-09-29 13:30)
PROC: 0DBF8ZX Excision of Right Large Intestine, Via Natural or Artificial Opening Endoscopic, Diagnostic (ICD-10-PCS; 2017-09-29 13:30)
DX: K29.50 Unspecified chronic gastritis without bleeding (principal); D12.5 Benign neoplasm of sigmoid colon; K64.8 Other hemorrhoids; F17.210 Nicotine dependence, cigarettes, uncomplicated; G47.30 Sleep apnea, unspecified; Z79.899 Other long term (current) drug therapy
CPT/HCPCS: 43239; 45380; 45385; 88342 ×2; 88305 ×2; J3490; J2405; J2704; 813

== ENCOUNTER 2019-09-18 08:58 | Emergency (ER) | payer MEDICARE, OTHER ==
[2019-09-18 09:16] VITALS: BP 122/75
--- NOTE | 2019-09-18 09:20 | ER Document Report ---
ED Fall - General Chief Complaint: Fall Stated Complaint: FALL Time Seen by Provider: 09/18/19 09:04 Primary Care Provider: DOMENICA LINO MD [ACTIVE STAFF] - Follow up as needed Notes: 34-year-old man presents with a history of falling down steps at home. States that he was going downstairs lost his footing may have fallen down 8 steps hit his head and neck. He denies loss of consciousness originally. His came to the emergency department later and noted that he was confused and not answering questions appropriately. The patient denies other injuries, he does point to his left lateral neck. He is alert and able to give reasonable answers to questions. TRAVEL OUTSIDE OF THE [place] IN LAST 30 DAYS: Yes - Related data Allergies/Adverse Reactions: milk Allergy (Unknown, Verified 09/29/17 11:11) CONSTIPATION, DIARRHEA shrimp Allergy (Unknown, Verified 09/29/17 11:11) wheat Allergy (Unknown, Verified 09/29/17 11:11) Home Medications: Lorazepma. adderrall Past Medical History - Social History Smoking Status: Unknown if Ever Smoked Family History: Reviewed & Not Pertinent Patient has suicidal ideation: No Patient has homicidal ideation: No - Past Medical History Cardiac Medical History: Reports: Hx Hypercholesterolemia Denies: Hx Coronary Artery Disease, Hx Heart Attack, Hx Hypertension Pulmonary Medical History: Denies: Hx Asthma, Hx Bronchitis, Hx COPD, Hx Pneumonia Neurological Medical History: Denies: Hx Cerebrovascular Accident, Hx Seizures Renal/ Medical History: Denies: Hx Peritoneal Dialysis GI Medical History: Reports: Hx Diverticulitis Musculoskeletal Medical History: Denies Hx Arthritis Psychiatric Medical History: Reports: Hx Depression Past Surgical History: Reports: Hx Orthopedic Surgery - left knee, right ankle - Immunizations Hx Diphtheria, Pertussis, Tetanus Vaccination: Yes Review of Systems - Review of Systems Notes: Constitutional: Negative for fever. HENT: + Neck pain, denies head/scalp pain Eyes: Negative for visual changes. Cardiovascular: Negative for chest pain. Respiratory: Negative for shortness of breath. Gastrointestinal: Negative for abdominal pain, vomiting or diarrhea. Genitourinary: Negative for dysuria. Musculoskeletal: + Chronic back pain. + Ankles and feet Skin: Negative for rash. Neurological: Negative for headaches, weakness or numbness. 10 point ROS negative except as marked above and in HPI. Physical Exam - Vital signs Vitals: Temp Pulse BP Pulse Ox 97.5 F 65 122/75 96 09/18/19 09:03 09/18/19 09:03 09/18/19 09:03 09/18/19 09:03 - Notes Notes: PHYSICAL EXAMINATION: Physical Exam: General: Well-nourished well-developed 34-year-old male in no acute distress HEENT: NC/AT, no swelling or bruising noted on the scalp. Pupils equal round and reactive to light, MM moist,nares clear, Neck: supple, tenderness to palpation in the left paracervical muscle group, good range of motion able to extend flex and circum-rotate the neck without difficulty. No adenopathy, no masses. Lungs: clear, no wheezing, no rales no rhonchi CVS: Regular rate and rhythm no murmur gallop or rub Abdomen: Soft active nontender, no masses, no hepatosplenomegaly Ext: No edema clubbing or cyanosis. Neuro: Alert and responsive, moving all 4 extremities on command, cranial nerves intact. Skin: Intact no open lesions, no rash PSYCH: Normal mood, normal affect. Course - Re-evaluation Re-evalutation: I discussed the patient's prior presentation with his , she is concerned that he was confused and she is not exactly sure why. I have explained that the fall may have caused his symptoms but given the fact that he is ex- and has had difficulties with his feet and ankles as well as his lower back a more in-depth evaluation may be needed. I had added a medical evaluation with CBC chemistries troponin and EKG as well as CT scan of the head to the patient's evaluation. I was told later by the nurse that the patient eloped from the emergency department prior to completing the evaluation. - Vital Signs Vital signs: Temp Pulse Resp BP Pulse Ox 97.5 F 65 122/75 96 09/18/19 09:03 09/18/19 09:03 09/18/19 09:03 09/18/19 09:03 Discharge - Discharge Clinical Impression: Neck pain Fall Qualifiers: Encounter type: initial encounter Qualified Code(s): W19.XXXA - Unspecified fall, initial encounter Condition: Good Disposition: ELOPED Referrals: DOMENICA LINO MD [ACTIVE STAFF] - Follow up as needed
[2019-09-18] MEDS ORDERED: ACETAMINOPHEN 325 MG TABLET PO ONE (09:21)
--- NOTE | 2019-09-18 10:06 | RADIOLOGY REPORT (SQ) ---
EXAM DESCRIPTION: CERV SP 4 OR 5 VIEWS COMPLETED DATE/TIME: 09/18/2019 9:40 am REASON FOR STUDY: Injury COMPARISON: None. NUMBER OF VIEWS: Five views. TECHNIQUE: AP, lateral, obliques and odontoid radiographic images acquired of the cervical spine. LIMITATIONS: None. FINDINGS: MINERALIZATION: Normal. ALIGNMENT: Anatomic. VERTEBRAE: Vertebral bodies of normal height. DISCS: No significant osteophytes or sclerosis. Disc height maintained. FORAMINA: No osteophytes or foraminal narrowing. LATERAL AND POSTERIOR ELEMENTS: Facets, lateral masses and spinous processes without significant find ings. HARDWARE: None in the spine. SOFT TISSUES: No masses or calcifications. Lung apices clear. OTHER: No other significant finding. IMPRESSION: NO SIGNIFICANT RADIOGRAPHIC FINDING IN THE CERVICAL SPINE. TECHNICAL DOCUMENTATION: JOB ID: [id number] 2011 [email or web address]- All Rights Reserved Reading location - IP/workstation name: [email or web address]
== END 2019-09-18 10:50 | disposition left against medical advice (07) ==
LOC: ER 08:58
DX: M54.2 Cervicalgia (principal); W10.9XXA Fall (on) (from) unspecified stairs and steps, initial encounter; Y92.009 Unspecified place in unspecified non-institutional (private) residence as the place of occurrence of the external cause; M54.9 Dorsalgia, unspecified; G89.29 Other chronic pain; Z79.899 Other long term (current) drug therapy; Z91.011 Allergy to milk products; Z91.013 Allergy to seafood; Z91.018 Allergy to other foods; Z53.20 Procedure and treatment not carried out because of patient's decision for unspecified reasons
CPT/HCPCS: 99283; 72050; A9270